=== PATIENT | male | born 1970 | race Caucasian/White ===

== ENCOUNTER 2016-02-28 20:07 | Emergency (ER) | payer OTHER ==
[~2016-02-28] VITALS: Ht 190.5 cm; Wt 84.0 kg
[~2016-02-28 20:07] MED LIST: PERC5TAB12 PO; TAMS0.4C67 PO
[2016-02-28 20:09] VITALS: BP 160/82; PULSE 101; RESP 22; TEMP 97.7; O2SAT 98
[2016-02-28] MEDS ORDERED: SODIUM CHLOR 0.9% 1000 ML INJ 1,000 ML IV ONE (20:37)
[2016-02-28] MEDS ORDERED: ONDANSETRON HCL 4 MG/2 ML VIAL IVP ONE (20:45)
[2016-02-28] MEDS ORDERED: KETOROLAC TROMETHAMINE 30 MG/ML (IVP) VIAL IVP ONE (20:45)
[2016-02-28] MEDS ORDERED: MORPHINE SULFATE 4 MG/ML INJ IV ONE (20:45)
[2016-02-28 20:49] VITALS: BP 157/105; PULSE 90; RESP 18; TEMP 98.1; O2SAT 100
--- NOTE | 2016-02-28 20:56 | PD ---
HPI Chief Complaint: Flank/Kidney Pain Time Seen by Provider: 20:55 Travel History International Travel<30 days: No Contact w/Intl Traveler<30days: No Traveled to known affect area: No History of Present Illness HPI 45-year-old male that presents to the ED for evaluation of left flank pain to his had since 10:00 this morning. Per patient he has a history of kidney stones that he should affect his left side. Per patient she's never had to have surgery but he's had this history before. Denies any fevers chills or sweats. No urinary or bowel movement symptoms. States no nausea or vomiting but states the pain is severe 10 out of 10 and comes and goes. On exam he is in a lot of distress secondary to the pain. He does have an eye to Dilaudid which causes severe swelling and rash. Patient able to take morphine. Per patient the pain is 10 out of 10 and does not radiate. Denies any numbness, tilling, weakness. No blurry vision or double vision. No headache. PFSH Past Medical History Cardiovascular Problems: Yes (HTN) Diminished Hearing: Yes (LT EAR DEMINISHED) Gastrointestinal Disorders: Yes (GERD/DUODENUM ULCER) Genitourinary: Yes (RENAL CALCULI) Hypertension: Yes Kidney Stones: Yes Neurologic: Yes (MIGRAINES) Immunizations Current: Yes Tetanus Vaccination: Unknown Influenza Vaccination: No Past Surgical History AICD: No Joint Replacement: No Pacemaker: No Other Surgery: Yes (DUODENAL ULCER rupture) Social History Alcohol Use: Yes (RARE) Tobacco Use: No (QUIT IN January) Substance Use: No Allergies-Medications (Allergen,Severity, Reaction): Coded Allergies: Dilaudid (Verified Allergy, Intermediate, red skin, itching, 02/28/16) Reported Meds & Prescriptions Reported Meds & Active Scripts Active No Active Prescriptions or Reported Medications Review of Systems Except as stated in HPI: all other systems reviewed are Neg Physical Exam Narrative GENERAL: SKIN: Warm and dry. HEAD: Atraumatic. Normocephalic. EYES: Pupils equal and round. No scleral icterus. No injection or drainage. ENT: No nasal bleeding or discharge. Mucous membranes pink and moist. NECK: Trachea midline. No JVD. CARDIOVASCULAR: Regular rate and rhythm. RESPIRATORY: No accessory muscle use. Clear to auscultation. Breath sounds equal bilaterally. GASTROINTESTINAL: Abdomen soft, non-tender, nondistended. Hepatic and splenic margins not palpable. MUSCULOSKELETAL: Extremities without clubbing, cyanosis, or edema. No obvious deformities. Full range of motion of the upper and lower extremities bilaterally. Patient does have significant CVA tenderness. No abdominal pain noted. 2+ pulses bilaterally. NEUROLOGICAL: Awake and alert. No obvious cranial nerve deficits. Motor grossly within normal limits. Five out of 5 muscle strength in the arms and legs. Normal speech. PSYCHIATRIC: Appropriate mood and affect; insight and judgment normal. Data Data Last Documented VS Vital Signs Date Time Temp Pulse Resp B/P Pulse Ox O2 Delivery O2 Flow Rate FiO2 02/28/16 22:07 18 02/28/16 20:49 98.1 90 157/105 100 Room Air Orders Urinalysis - C+S If Indicated (02/28/16 20:16) Complete Blood Count With Diff (02/28/16 20:37) Basic Metabolic Panel (Bmp) (02/28/16 20:37) Ct Abd/Pel W/O Iv Contrast (02/28/16 20:37) Iv Access Insert/Monitor (02/28/16 20:37) Ketorolac Inj (Toradol Inj) (02/28/16 20:45) Morphine Inj (Morphine Inj) (02/28/16 20:45) Ondansetron Inj (Zofran Inj) (02/28/16 20:45) Sodium Chlor 0.9% 1000 Ml Inj (Ns 1000 M (02/28/16 20:37) Labs Laboratory Tests Test 02/28/16 20:53 White Blood Count 13.6 TH/MM3 Red Blood Count 5.17 MIL/MM3 Hemoglobin 14.5 GM/DL Hematocrit 42.9 % Mean Corpuscular Volume 83.0 FL Mean Corpuscular Hemoglobin 28.1 PG Mean Corpuscular Hemoglobin 33.8 % Concent Red Cell Distribution Width 12.8 % Platelet Count 410 TH/MM3 Mean Platelet Volume 9.5 FL Neutrophils (%) (Auto) 78.0 % Lymphocytes (%) (Auto) 15.5 % Monocytes (%) (Auto) 5.6 % Eosinophils (%) (Auto) 0.8 % Basophils (%) (Auto) 0.1 % Neutrophils # (Auto) 10.6 TH/MM3 Lymphocytes # (Auto) 2.1 TH/MM3 Monocytes # (Auto) 0.8 TH/MM3 Eosinophils # (Auto) 0.1 TH/MM3 Basophils # (Auto) 0.0 TH/MM3 CBC Comment DIFF FINAL Differential Comment Sodium Level 139 MEQ/L Potassium Level 3.8 MEQ/L Chloride Level 103 MEQ/L Carbon Dioxide Level 26.3 MEQ/L Anion Gap 10 MEQ/L Blood Urea Nitrogen 8 MG/DL Creatinine 1.14 MG/DL Estimat Glomerular Filtration 69 ML/MIN Rate Random Glucose 138 MG/DL Calcium Level 8.9 MG/DL [facility] Medical Decision Making Medical Screen Exam Complete: Yes Emergency Medical Condition: Yes Medical Record Reviewed: Yes Interpretation(s) Last Impressions Abdomen/Pelvis CT 02/28/162036 Signed Impressions: Service Date/Time: February 21:29 - CONCLUSION: 4 x 7 mm stone of the proximal left ureter causing mild acute obstructive uropathy; this stone can be seen on the initial clinical applications manager radiograph. Both kidneys have scattered sub-5 mm nonobstructing stones. Jose Evangelista MD CBC & BMP Diagram 02/28/16 20:53 Differential Diagnosis Kidney stone versus ureterolithiasis versus pyelonephritis versus UTI versus muscle strain Narrative Course 45-year-old male that presents to the ED for evaluation of left flank pain. Patient was properly examined and was found to have signs and symptoms concerning for kidney stones. Labs and imaging ordered. Patient was given IV pain medications. Labs and imaging showed left ureteral stone. Case was discussed in my attending who recommends outpatient treatment. Stone is 4 x 7 mm. Patient was told that it will likely pass but there is a chance that he will not. Patient was told that if anything worsens in the next 48 hours and is to come back. Patient is agreeable with plan. Patient was given prescription for Percocet, Zofran, Cipro and Flomax. Given note for work. See ED worsening symptoms. All questions were answered to the best of my ability. Patient apparently with plan. Diagnosis Primary Impression: Urethral stone Patient Instructions: General Instructions, Narcotic given in the ED Additional Instructions: Take medications as prescribed. Follow-up with PCP. See ED for any worsening symptoms. Do not drink or drive while taking pain medication. Apply ice or heat as needed for pain Med/Other Pt SpecificInfo: Prescription(s) given Scripts Tamsulosin (Flomax)0.4 Mg Cap0.4 Mg PO HS #14 CAP Ref 0 Prov:Tian Loco MD 02/28/16 Ciprofloxacin (Cipro)500 Mg Xmm233 Mg PO BID 7 Days Ref 0 Prov:Tian Loco MD 02/28/16 Ondansetron Odt (Zofran Odt)4 Mg Tab4 Mg SL Q6HR PRN (Nausea/Vomiting) #30 TAB Ref 0 Prov:Tian Loco MD 02/28/16 Oxycodone-Acetaminophen (Percocet)5-325 mg Tab1 Tab PO Q6H PRN (PAIN) #20 TAB Ref 0 Prov:Tian Loco MD 02/28/16 Disposition: 01 DISCHARGE HOME Condition: Stable Brian Escalante Feb 28, 2016 20:56
[2016-02-28 22:05] LABS: AUTOMATED NEUTROPHIL # 10.6 TH/MM3 (1.8-7.7); BASOPHIL % 0.1 % (0.0-2.0); EOSINOPHIL # 0.1 TH/MM3 (0-0.4); EOSINOPHIL % 0.8 % (0.0-4.0); HEMATOCRIT 42.9 % (39.0-51.0); HEMO FLAGS DIFF FINAL; LYMPH % 15.5 % (9.0-44.0); LYMPHOCYTE # 2.1 TH/MM3 (1.0-4.8); MEAN CORPUSCULAR HEMOGLOBIN 28.1 PG (27.0-34.0); MEAN CORPUSCULAR HGB CONC 33.8 % (32.0-36.0); MONO % 5.6 % (0.0-8.0); PLATELET COUNT 410 TH/MM3 (150-450); RED BLOOD COUNT 5.17 MIL/MM3 (4.50-5.90); RED CELL DISTRIBUTION WIDTH 12.8 % (11.6-17.2); WHITE BLOOD COUNT 13.6 TH/MM3 (4.0-11.0)
[2016-02-28 22:19] LABS: BICARBONATE 26.3 MEQ/L (21.0-32.0); POTASSIUM 3.8 MEQ/L (3.5-5.1)
--- NOTE | 2016-02-28 22:27 | RADRPT ---
EXAM DATE/TIME: 02/28/2016 21:29 [facility] COMPARISON: CT ABDOMEN & PELVIS W/O CONTRAST, November 23, 2015, 20:48. INDICATIONS : Left flank and testicular pain today. ORAL CONTRAST: No oral contrast ingested. RADIATION DOSE: 27.77 CTDIvol (mGy) MEDICAL HISTORY : Gastroesophageal reflux disease. Renal calculi. Diverticulitis.Hypertension SURGICAL HISTORY : None. ENCOUNTER: Initial ACUITY: 1 day PAIN SCALE: 8/10 LOCATION: Left flank abdomen TECHNIQUE: Volumetric scanning of the abdomen and pelvis was performed. Using automated exposure control and ad justment of the mA and/or kV according to patient size, radiation dose was kept as low as reasonably achievable to obtain optimal diagnostic quality images. FINDINGS: LOWER LUNGS: The visualized lower lungs are clear. LIVER: Homogeneous density without lesion. There is no dilation of the biliary tree. No calcified gallston es. SPLEEN: Normal size without lesion. PANCREAS: Within normal limits. KIDNEYS: Scattered sub-5 mm nonobstructing stones are seen in both kidneys. On the left, there is a 4 x 7 mm s tone of the left ureteropelvic junction causing mild hydronephrosis. Previously seen stone at the rig ht ureterovesical junction is no longer present. There is no hydronephrosis or hydroureter on the rig ht. ADRENAL GLANDS: Within normal limits. VASCULAR: There is no aortic aneurysm. BOWEL/MESENTERY: The stomach, small bowel, and colon demonstrate no acute abnormality. There is no free intraperitone al air or fluid. ABDOMINAL WALL: Within normal limits. RETROPERITONEUM: There is no lymphadenopathy. BLADDER: No wall thickening or mass. REPRODUCTIVE: Within normal limits. INGUINAL: There is no lymphadenopathy or hernia. MUSCULOSKELETAL: Within normal limits for patient age. CONCLUSION: 4 x 7 mm stone of the proximal left ureter causing mild acute obstructive uropathy; this stone can be seen on the initial dry sander radiograph. Both kidneys have scattered sub-5 mm nonobstructing stones. Jose Evangelista MD on February 28, 2016 at 22:22 Board Certified Radiologist. This report was verified electronically.
[2016-02-28] MEDS ORDERED: TAMS5CAP PO (22:48)
[2016-02-28] MEDS ORDERED: PERC5TAB12 PO (22:48)
[2016-02-28] MEDS ORDERED: CIPR-9 PO (22:48)
[2016-02-28] MEDS ORDERED: ZOFR4TAB3 SL (22:48)
[2016-02-28 22:52] VITALS: BP 141/86; PULSE 80; RESP 18; TEMP 98.1; O2SAT 97
== END 2016-02-28 23:07 | disposition home or self-care (01) ==
LOC: NEPE 20:07
DX: N21.1 Calculus in urethra (principal); I10 Essential (primary) hypertension; K21.9 Gastro-esophageal reflux disease without esophagitis
CPT/HCPCS: 74176; 80048; 85025; 96361; 96374; 96375; 99284; J1885; J2270; J2405; J7030